=== PATIENT | female | born 1955 | race Caucasian/White ===

== ENCOUNTER → 2016-12-22 | Outpatient (CLI) | payer BC ==
[~2016-12-22] MED LIST: DIPH50CA33 PO; LISI10TA2 PO; MOME15CR TP; PRD5T PO
== END ==
DX: Z12.31 Encounter for screening mammogram for malignant neoplasm of breast (principal)

== ENCOUNTER → 2017-01-09 | Outpatient (REF) ==
[~2017-01-09] MED LIST changes: +CYAN10006 PO; +MULT-324 PO; +OMG1KC PO
--- NOTE | 2017-01-09 13:46 | Diagnostic Imaging Report ---
INDICATION: Left ankle injury. 3 views of the left ankle show no fracture, dislocation, or other acute abnormalities. IMPRESSION: Negative left ankle. Dictated by: Dictated on workstation # [id number]
--- NOTE | 2017-01-09 13:47 | Diagnostic Imaging Report ---
INDICATION: Left foot injury. 3 views of the left foot show no fracture, dislocation, or other acute abnormalities. IMPRESSION: Negative left foot. Dictated by: Dictated on workstation # [id number]
--- NOTE | 2017-01-09 13:54 | Diagnostic Imaging Report ---
Two views of the right wrist. INDICATION: Fall. FINDINGS: There is no fracture or dislocation seen. No radiopaque foreign body. There is joint space narrowing and subchondral sclerosis at the scaphoid trapezium and trapezium metacarpal joints at the base of the thumb. There is also minimal subchondral sclerosis at the radiocarpal joint. IMPRESSION: Mild degenerative changes. Dictated by: Dictated on workstation # [id number]
== END | disposition home or self-care (01) ==
LOC: OCC 13:15
PROVIDERS: ATTEND Nurse Practitioner Family
CPT/HCPCS: 73110; 73610; 73630

== ENCOUNTER 2017-02-17 03:02 | Inpatient (IN) | payer BC ==
[~2017-02-17] VITALS: Ht 165.1 cm; Wt 87.1 kg
[~2017-02-17 03:02] MED LIST changes: -CYAN10006 PO; -MULT-324 PO; -OMG1KC PO
--- OUTSIDE RECORDS SUMMARY | 2017-02-17 03:08 | XMS REPORT | Continuity of Care Document ---
Author Author [facility] Organization [facility] Address Unknown Phone Unavailable Allergies Active Description Code Type Severity Reaction Onset Reported/Identified Relationship to Patient Clinical Status Yes No Known Drug Allergies [id number] Drug Allergy Unknown N/ A 04/19/2016 Medications Problems Date Dx Coded Attending Type Code Diagnosis Diagnosed By 09/22/2010 Ot V16.0 FAMILY HX-GI MALIGNANCY 09/22/2010 Ot V76.51 SCREEN MAL NEOP-COLON 01/04/2012 Ot 692.6 DERMATITIS DUE TO PLANT 01/07/2012 Ot 692.6 DERMATITIS DUE TO PLANT 12/19/2014 Ot V76.12 01/06/2015 TETO MUSA DO Ot V76.12 12/22/2015 Ot V76.12 OTH SCREEN MAMMO-MALIGN NEOPLASM OF [place] 12/22/2015 TETO MUSA DO Ot V76.12 OTH SCREEN MAMMO-MALIGN NEOPLASM OF [place] 12/23/2015 TETO MUSA DO Ot Z12.31 ENCNTR SCREEN MAMMOGRAM FOR MALIGNANT NE 12/28/2015 TETO MUSA DO Ot Z12.31 ENCNTR SCREEN MAMMOGRAM FOR MALIGNANT NE 01/07/2016 TETO MUSA DO Ot Z12.31 ENCNTR SCREEN MAMMOGRAM FOR MALIGNANT NE 04/15/2016 BRANDON COLON DO Ot Z01.818 ENCOUNTER FOR OTHER PREPROCEDURAL EXAMIN 04/15/2016 BRANDON COLON DO Ot Z12.11 ENCOUNTER FOR SCREENING FOR MALIGNANT NE 04/18/2016 BRANDON COLON DO Ot Z01.818 ENCOUNTER FOR OTHER PREPROCEDURAL EXAMIN 04/18/2016 BRANDON COLON DO Ot Z12.11 ENCOUNTER FOR SCREENING FOR MALIGNANT NE 04/18/2016 BRANDON COLON DO Ot Z01.818 ENCOUNTER FOR OTHER PREPROCEDURAL EXAMIN 04/18/2016 BRANDON COLON DO Ot Z12.11 ENCOUNTER FOR SCREENING FOR MALIGNANT NE 04/19/2016 LENCHO SCOTT TETO Stevens Ot V76.12 OTH SCREEN MAMMO-MALIGN NEOPLASM OF [place] 04/19/2016 LENCHO TETO SCOTT Ot Z12.31 ENCNTR SCREEN MAMMOGRAM FOR MALIGNANT NE 04/19/2016 COLON JACEK SCOTTTT D Ot D12.4 BENIGN NEOPLASM OF DESCENDING COLON 04/19/2016 COLON JACEK SCOTTTT D Ot Z12.11 ENCOUNTER FOR SCREENING FOR MALIGNANT NE 04/19/2016 COLON JACEK SCOTTTT D Ot Z80.0 FAMILY HISTORY OF MALIGNANT NEOPLASM OF 04/21/2016 COLON BRANDON SCOTT D Ot D12.4 BENIGN NEOPLASM OF DESCENDING COLON 04/21/2016 COLON JACEK SCOTTTT D Ot Z12.11 ENCOUNTER FOR SCREENING FOR MALIGNANT NE 04/21/2016 HENDERSON JACEK SCOTTSAMEER Olmos Ot Z80.0 FAMILY HISTORY OF MALIGNANT NEOPLASM OF 01/04/2017 LENCHO SCOTTTETO Ot Z12.31 ENCNTR SCREEN MAMMOGRAM FOR MALIGNANT NE Procedures Results Encounters ACCT No. Visit Date/Time Discharge Status Pt. Type Provider Facility Loc./Unit Complaint [id number] 01/09/2017 13:15:00 2016 23:59:59 CLS Outpatient ANIBAL PIERRE [facility] OCC FELL [id number] 12/22/2016 14:15:00 2016 23:59:59 CLS Outpatient TETO MUSA DO [facility] RAD SCREENING [id number] 04/19/2016 06:58:00 2015 09:40:00 DIS Outpatient BRANDON COLON DO [facility] SDC SCREENING [id number] 04/18/2016 13:00:00 2015 13:27:00 DIS Outpatient BRANDON COLON DO [facility] PREOP SCREENING [id number] 12/22/2015 14:31:00 2015 23:59:59 CLS Outpatient TETO MUSA DO [facility] RAD SCREENING [id number] 12/19/2014 10:35:00 2014 23:59:[address] [facility] Outpatient TETO MUSA DO [facility] RAD SCREENING [id number] 01/07/2012 08:13:00 Document Registration [id number] 01/04/2012 10:23:00 Document Registration [id number] 09/22/2010 06:37:00 Document Registration [id number] 08/31/2010 08:51:00 Document Registration
[2017-02-17] MEDS ORDERED: ONDANSETRON 4 MG/2 ML (SDV) Z0FRAN IVP ONE (03:15)
--- NOTE | 2017-02-17 03:26 | ED Abdominal Pain ---
General Chief Complaint: Abdominal/GI Problems Stated Complaint: ABD PAIN Nursing Triage Note: c/o diffuse abdomen pain with nausea Sepsis Screen: No Definite Risk Source of Information: Patient Exam Limitations: No Limitations History of Present Illness Time Seen By Provider: 03:08 Initial Comments This 61-year-old woman presents to the emergency room with complaints of generalized abdominal pain across the central abdomen. Pain has been radiating to her back. She has associated nausea without vomiting or diarrhea. Her last bowel movement was this morning and was normal. She has been chilled without fever. She was unable to sleep and decided to present to the emergency room. Pain started last night. Her last oral intake was at 19:00. She denies any urinary changes. Allergies and Home Medications Allergies Coded Allergies: No Known Drug Allergies (Verified , 04/19/16) Home Medications Lisinopril 10 Mg Tablet, 10 MG PO DAILY, (Reported) Review of Systems Constitutional: see HPI, chills EENTM: No Symptoms Reported Respiratory: No Symptoms Reported Cardiovascular: No Symptoms Reported Gastrointestinal: See HPI Genitourinary: No Symptoms Reported Musculoskeletal: no symptoms reported Skin: no symptoms reported Psychiatric/Neurological: No Symptoms Reported Endocrine: No Symptoms Reported Hematologic/Lymphatic: No Symptoms Reported Past Hbxrkur-Zbeukv-Lzdope Hx Patient Social History Alcohol Use: Denies Use Recreational Drug Use: No Recent Foreign Travel: No Contact w/Someone Who Travel: No Recent Infectious Disease Expo: No Recent Hopitalizations: No Immunizations Up To Date Date of Influenza Vaccine: Apr 04, 2016 Seasonal Allergies Seasonal Allergies: No Surgeries HX Surgeries: Yes (BLADDER TIE UP) Surgeries: Abdominal (hernia repair), Hysterectomy Respiratory Hx Respiratory Disorders: No Cardiovascular Hx Cardiac Disorders: No Cardiac Disorders: Hypertension Neurological Hx Neurological Disorders: No Reproductive System Hx Reproductive Disorders: No Genitourinary Hx Genitourinary Disorders: No Gastrointestinal Hx Gastrointestinal Disorders: No Musculoskeletal Hx Musculoskeletal Disorders: Yes Musculoskeletal Disorders: Chronic Back Pain HEENT HX ENT Disorders: Yes (GLASSES, PARTIAL) Loss of Vision: Bilateral Hearing Impairment: Denies Cancer Hx Cancer: No Integumentary HX Skin/Integumentary Disorder: No Blood Transfusions Hx Blood Disorders: No Adverse Reaction to a Blood Tr: No (N/A) Physical Exam Vital Signs VS - Last 72 Hours, by Label 02/17/17 03:10 Temp 97.5 Pulse 85 Resp 18 B/P (MAP) 134/119 Pulse Ox 99 Capillary Refill : Less Than 3 Seconds General Appearance: WD/WN, mild distress HEENT: PERRL/EOMI, normal ENT inspection, pharynx normal Neck: normal inspection Respiratory: lungs clear, normal breath sounds, no respiratory distress, no accessory muscle use Cardiovascular: regular rate, rhythm, no edema, no murmur Gastrointestinal: normal bowel sounds, soft, tenderness (generalized central abdomen) Extremities: normal inspection, no pedal edema 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, no motor/sensory deficits, alert, normal mood/affect, oriented x 3 Skin: normal color, warm/dry Progress/Results/Core Measures Results/Orders Lab Results Laboratory Tests Test 02/17/17 03:15 02/17/17 03:25 Range/Units Urine Color YELLOW Urine Clarity SLIGHTLY CLOUDY Urine pH 5 5-9 Urine Specific [place] 1.015 L 1.016-1.022 Urine Protein 2+ H NEGATIVE Urine Glucose (UA) NEGATIVE NEGATIVE Urine Ketones 1+ H NEGATIVE Urine Nitrite NEGATIVE NEGATIVE Urine Bilirubin NEGATIVE NEGATIVE Urine Urobilinogen NORMAL NORMAL MG/DL Urine Leukocyte Esterase 3+ H NEGATIVE Urine RBC (Auto) 2+ H NEGATIVE Urine RBC 0-2 /HPF Urine WBC 25-50 H /HPF Urine Squamous Epithelial Cells 0-2 /HPF Urine Crystals NONE /LPF Urine Bacteria FEW H /HPF Urine Casts NONE /LPF Urine Mucus SMALL H /LPF Urine Culture Indicated YES White Blood Count 15.8 H 4.3-11.0 10^3/uL Red Blood Count 4.71 4.35-5.85 10^6/uL Hemoglobin 14.8 11.5-16.0 G/DL Hematocrit 44 35-52 % Mean Corpuscular Volume 94 80-99 FL Mean Corpuscular Hemoglobin 31 25-34 PG Mean Corpuscular Hemoglobin Concent 34 32-36 G/DL Red Cell Distribution Width 12.9 10.0-14.5 % Platelet Count 260 130-400 10^3/uL Mean Platelet Volume 11.0 H 7.4-10.4 FL Neutrophils (%) (Auto) 67 42-75 % Lymphocytes (%) (Auto) 24 12-44 % Monocytes (%) (Auto) 8 0-12 % Eosinophils (%) (Auto) 2 0-10 % Basophils (%) (Auto) 0 0-10 % Neutrophils # (Auto) 10.5 H 1.8-7.8 X 10^3 Lymphocytes # (Auto) 3.7 1.0-4.0 X 10^3 Monocytes # (Auto) 1.3 H 0.0-1.0 X 10^3 Eosinophils # (Auto) 0.3 0.0-0.3 10^3/uL Basophils # (Auto) 0.0 0.0-0.1 10^3/uL Neutrophils % (Manual) 65 % Lymphocytes % (Manual) 15 % Monocytes % (Manual) 3 % Eosinophils % (Manual) 2 % Basophils % (Manual) 1 % Band Neutrophils 0 % Reactive Lymphocytes 14 % Blood Morphology Comment NORMAL Sodium Level 141 135-145 MMOL/L Potassium Level 4.6 3.6-5.0 MMOL/L Chloride Level 108 H 98-107 MMOL/L Carbon Dioxide Level 18 L 21-32 MMOL/L Anion Gap 15 H 5-14 MMOL/L Blood Urea Nitrogen 20 H 7-18 MG/DL Creatinine 0.82 0.60-1.30 MG/DL Estimat Glomerular Filtration Rate > 60 BUN/Creatinine Ratio 24 Glucose Level 107 H 70-105 MG/DL Calcium Level 9.7 8.5-10.1 MG/DL Total Bilirubin 1.1 H 0.1-1.0 MG/DL Aspartate Amino Transf (AST/SGOT) 27 5-34 U/L Alanine Aminotransferase (ALT/SGPT) 20 0-55 U/L Alkaline Phosphatase 84 40-136 U/L Total Protein 7.6 6.4-8.2 GM/DL Albumin 4.3 3.2-4.5 GM/DL Lipase 17 8-78 U/L My Orders Orders - SAMI ADKINS MD Cbc With Automated Diff (02/17/17 03:06) Comprehensive Metabolic Panel (02/17/17 03:06) Lipase (02/17/17 03:06) Ua Culture If Indicated (02/17/17 03:06) Saline Lock/Iv-Start (02/17/17 03:06) Ondansetron Injection (Zofran Injectio (02/17/17 03:15) Manual Differential (02/17/17 03:25) Urine Culture (02/17/17 03:15) Ct Abdomen/Pelvis W (02/17/17 04:13) Iohexol Injection (Omnipaque 350 Mg/Ml 1 (02/17/17 05:00) Ns (Ivpb) (Sodium Chloride 0.9% Ivpb Bag (02/17/17 05:00) Fentanyl Injection (Sublimaze Injection (02/17/17 05:45) Ceftriaxone Injection (Rocephin Injectio (02/17/17 06:15) Medications Given in ED Current Medications Medications Dose Ordered Sig/Tang Route Start Time Stop Time Status Last Admin Dose Admin Ceftriaxone Sodium 1000 mg/ Sodium Chloride 50 ml @ 100 mls/hr ONCE ONCE IV 02/17/17 06:15 02/17/17 06:44 02/17/17 06:14 100 MLS/HR Fentanyl Citrate 50 mcg ONCE ONCE IVP 02/17/17 05:45 02/17/17 05:46 DC 02/17/17 05:45 50 MCG Iohexol 100 ml ONCE ONCE IV 02/17/17 05:00 02/17/17 05:01 DC 02/17/17 04:59 100 ML Ondansetron HCl 4 mg ONCE ONCE IVP 02/17/17 03:15 02/17/17 03:16 DC 02/17/17 03:28 4 MG Sodium Chloride 100 ml ONCE ONCE IV 02/17/17 05:00 02/17/17 05:01 DC 02/17/17 04:59 80 ML Vital Signs/I&O Vital Sign - Last 12Hours 02/17/17 03:10 Temp 97.5 Pulse 85 Resp 18 B/P (MAP) 134/119 Pulse Ox 99 Blood Pressure Mean: 124 Progress Note : Progress Note Patient's pain was treated with fentanyl. Nausea was treated with Zofran. Urinary tract infection was treated with Rocephin. Case was reviewed with Dr. Rodarte who suggested admission for observation. Diagnostic Imaging Diagonstic Imaging: CT Plain Films/CT/US/NM/MRI: abdomen, pelvis Comments CT scan reviewed by me and report reviewed. Patient has air-fluid filled proximal small bowel loops suggestive of partial small bowel obstruction. There is a transition point. There is wall thickening in segments of the small bowel suggestive of enteritis. Departure Communication Time/Spoke to Admitting Phy: 06:[address] Cortes Time/Spoke to Consulting Physi: 06:00 Communication/Consulting Dr. Rowland Impression Impression: Primary Impression: Partial small bowel obstruction Additional Impressions: Urinary tract infection Qualified Codes: N39.0 - Urinary tract infection, site not specified Nausea and vomiting Qualified Codes: R11.2 - Nausea with vomiting, unspecified Disposition: ADMITTED INPATIENT Condition: Improved Admissions Decision to Admit Reason: Admit from ER (General) Decision to Admit/Date: Feb 17, 2017 Time/Decision to Admit Time: 06:00 Departure-Patient Inst. Referrals: TETO CORTES DO (PCP/Family) Primary Care Physician SAMI ADKINS MD Feb 17, 2017 03:26
[2017-02-17 03:30] LABS: BILIRUBIN,URINE NEGATIVE (NEGATIVE); KETONES,URINE 1+ (NEGATIVE); LEUKOCYTE ESTERASE ,URINE 3+ (NEGATIVE); NITRITE,URINE NEGATIVE (NEGATIVE); PH,URINE 5 (5-9); PROTEIN,URINE 2+ (NEGATIVE); UROBILINOGEN,URINE NORMAL (NORMAL)
[2017-02-17 03:36] LABS: BASOPHILS % (AUTO) 0 % (0-10); EOSINOPHILS # (AUTO) 0.3 10^3/uL (0.0-0.3); EOSINOPHILS % (AUTO) 2 % (0-10); LYMPHOCYTES # (AUTO) 3.7 X 10^3 (1.0-4.0); LYMPHOCYTES % (AUTO) 24 % (12-44); MEAN CORPUSCULAR HEMOGLOBIN 31 PG (25-34); MEAN CORPUSCULAR HGB CONC 34 G/DL (32-36); MEAN CORPUSCULAR VOLUME 94 FL (80-99); MONOCYTES # (AUTO) 1.3 X 10^3 (0.0-1.0); MONOCYTES % (AUTO) 8 % (0-12); NEUTROPHILS # (AUTO) 10.5 X 10^3 (1.8-7.8); NEUTROPHILS % (AUTO) 67 % (42-75); PLATELET COUNT 260 10^3/uL (130-400); RED BLOOD COUNT 4.71 10^6/uL (4.35-5.85); RED CELL DISTRIBUTION WIDTH 12.9 % (10.0-14.5); WHITE BLOOD COUNT 15.8 10^3/uL (4.3-11.0)
[2017-02-17 03:48] LABS: SQUAMOUS EPITHELIAL CELL,UR 0-2 /HPF; WBC,URINE 25-50 /HPF
[2017-02-17 04:01] LABS: BAND NEUTROPHILS 0 %; BASOPHILS % (MANUAL) 1 %; EOSINOPHILS % (MANUAL) 2 %; LYMPHOCYTES % (MANUAL) 15 %; NEUTROPHILS % (MANUAL) 65 %; REACTIVE LYMPHOCYTES 14 %
[2017-02-17 04:10] LABS: ALANINE AMINOTRANSFERASE 20 U/L (0-55); ALBUMIN 4.3 GM/DL (3.2-4.5); ANION GAP 15 MMOL/L (5-14); ASPARTATE AMINO TRANSFERASE 27 U/L (5-34); BILIRUBIN,TOTAL 1.1 MG/DL (0.1-1.0); BLOOD UREA NITROGEN 20 MG/DL (7-18); BUN/CREATININE RATIO 24; CALCIUM 9.7 MG/DL (8.5-10.1); CARBON DIOXIDE 18 MMOL/L (21-32); CHLORIDE 108 MMOL/L (98-107); CREATININE SERUM 0.82 MG/DL (0.60-1.30); GFR ESTIMATED > 60; GLUCOSE 107 MG/DL (70-105); LIPASE 17 U/L (8-78); POTASSIUM 4.6 MMOL/L (3.6-5.0); SODIUM 141 MMOL/L (135-145); TOTAL PROTEIN 7.6 GM/DL (6.4-8.2)
[2017-02-17] MEDS ORDERED: NS 100 ML (IVPB) BAG IV ONE (05:00)
[2017-02-17] MEDS ORDERED: IOHEXOL 350 MG/ML 100 ML (OMNIPAQUE 350) VIAL IV ONE (05:00)
[2017-02-17] MEDS ORDERED: fentaNYL INJECTION 100 MCG/2 ML AMP IVP ONE (05:45)
[2017-02-17] MEDS ORDERED: cefTRIAXone INJECTION 1,000 MG in NS (IVPB) 50 ML IV ONE (06:15)
--- NOTE | 2017-02-17 06:45 | Diagnostic Imaging Report ---
PROCEDURE: CT abdomen and pelvis with contrast. TECHNIQUE: Multiple contiguous axial images were obtained through the abdomen and pelvis after administration of intravenous contrast. INDICATION: Abdominal pain and nausea x1 day. CORRELATION STUDY: None. FINDINGS: LOWER THORAX: Clear. LIVER: Mild diffuse hepatic steatosis without focal lesion. GALLBLADDER: Present and unremarkable. No bile duct dilatation. SPLEEN: Unremarkable. PANCREAS: Unremarkable. ADRENAL GLANDS: Unremarkable. KIDNEYS: Normal configuration. No calcification or obstruction. ABDOMINAL AORTA: Unremarkable, nonaneurysmal. GASTROINTESTINAL TRACT: Moderately dilated air and fluid-filled proximal small bowel loops are present. These measure up to approximately 3.3 cm. There is what appears to be a probable transition point in the right hemipelvis where the small bowel does appear to be somewhat thick walled. Colon appearing unremarkable. No evidence for appendicitis. There is presence of a small amount of abdominal and pelvic fluid. No findings to suggest abscess formation. Stomach mildly distended with fluid as well. There are a few shotty mesenteric and retroperitoneal lymph nodes present, likely reactive. URINARY BLADDER: Relatively decompressed. REPRODUCTIVE: Uterus is absent. OSSEOUS STRUCTURES: No acute abnormality. IMPRESSION: 1. Prominent dilated air-fluid filled loops of small bowel with apparent transition point. Features may very well reflect underlying distal enteritis, either infectious, inflammatory less likely ischemic with likely results in partial small bowel obstruction versus profound ileus. Followup imaging recommended. Likely reactive abdominal and pelvic fluid. A preliminary report was provided by [employer]. Dictated by: Dictated on workstation # [id number]
[2017-02-17 07:22] VITALS: BP 120/74
[2017-02-17] MEDS ORDERED: CATHETER FLUSH 10 ML SYR IV PRN (07:45)
[2017-02-17] MEDS: D5 1/2 NS 1000 ML IV SOLUTION 1,000 ML IV SCH ×3 (07:51→23:54)
[2017-02-17] MEDS: fentaNYL INJECTION 100 MCG/2 ML AMP IV PRN ×3 (07:52→19:50)
[2017-02-17] MEDS ORDERED: MULT-324 PO (08:02)
[2017-02-17] MEDS ORDERED: OMG1KC PO (08:02)
[2017-02-17] MEDS ORDERED: CYAN10006 PO (08:02)
[2017-02-17] MEDS: cefTRIAXone 1 GM/NS 50 ML IVPB IV SCH ×2 (08:22)
[2017-02-17] MEDS: FAMOTIDINE 20MG/2ML IV (PEPCID) IVP SCH ×2 (09:50→20:03)
--- NOTE | 2017-02-17 11:11 | Consultation ---
History of Present Illness History of Present Illness Patient Consulted On(lesa/time) 02/17/17 11:05 Time Seen by Provider: 10:16 History of Present Illness Surgery asked to consult regarding partial small bowel obstruction HPI: Pt is a 61-year-old woman who presented to the emergency room with complaints of generalized abdominal pain across the central abdomen. Pain has been radiating to her back. She states it is associated with nausea but no vomiting or diarrhea. Her last bowel movement was this morning and was normal. She has been chilled without fever. She was unable to sleep and decided to present to the emergency room. Pain started last night. Her last oral intake was at 19:00. She denies any dysuria, increased frequency or hematuria. She rated the pain as a 6 out of 10 on a 1-10 scale. Describes a mainly "crampy" pain. She denies any recent URI's, no travel and states no one at home has anything similar. She has never had anything like this before. Allergies and Home Medications Allergies Coded Allergies: No Known Drug Allergies (Verified , 04/19/16) Home Medications Cyanocobalamin (Vitamin B-12) 1,000 Mcg Tablet, 1,000 MCG PO DAILY, (Reported) Lisinopril 10 Mg Tablet, 5 MG PO DAILY, (Reported) TAKES 1/2 (10MG) TABLET Multivitamin 1 Each Tablet, 1 TAB PO DAILY, (Reported) [place] 3 Polyunsat Fatty Acids 1,000 Mg Cap, 1,000 MG PO 1800, (Reported) Past Imhnucy-Ciytaw-Kgsikg Hx Patient Social History Alcohol Use: Denies Use Recreational Drug Use: No Smoking Status: Never a Smoker Recent Foreign Travel: No Contact w/Someone Who Travel: No Recent Infectious Disease Expo: No Recent Hopitalizations: No Immunizations Up To Date Date of Influenza Vaccine: Apr 04, 2016 Seasonal Allergies Seasonal Allergies: No Surgeries HX Surgeries: Yes (BLADDER TIE UP) Surgeries: Abdominal (hernia repair), Hysterectomy Respiratory Hx Respiratory Disorders: No Cardiovascular Hx Cardiac Disorders: No Cardiac Disorders: Hypertension Neurological Hx Neurological Disorders: No Reproductive System Hx Reproductive Disorders: No Genitourinary Hx Genitourinary Disorders: No Gastrointestinal Hx Gastrointestinal Disorders: No Musculoskeletal Hx Musculoskeletal Disorders: Yes Musculoskeletal Disorders: Chronic Back Pain HEENT HX ENT Disorders: Yes (GLASSES, PARTIAL) Loss of Vision: Bilateral Hearing Impairment: Denies Cancer Hx Cancer: No Psychosocial Hx Psychiatric Problems: No Integumentary HX Skin/Integumentary Disorder: No Blood Transfusions Hx Blood Disorders: No Adverse Reaction to a Blood Tr: No (N/A) Family Medical History Significant Family History: Cancer (mother of cancer), CAD Over 55 Years Old (father), Hypertension (2 brothers) Review of Systems-General Constitutional: chills, diaphoresis, weakness EENTM: vision loss, No hearing loss, No epistaxis, No nose congestion, No throat pain, No throat swelling Respiratory: No cough, No dyspnea on exertion, No hemoptysis Cardiovascular: No chest pain, No edema, No palpitations Gastrointestinal: RLQ, No constipation, No diarrhea, No melena Genitourinary: No dysuria, No frequency, No hesitancy Musculoskeletal: back pain, joint pain, joint swelling, muscle stiffness Skin: No change in color, No change in hair/nails Psychiatric/Neurological: Denies Anxiety, Denies Depressed Other pt denies any abnormal bruising or bleeding, no heat or cold intolerance Physical Exam-General Problems Physical Exam Vital Signs Vital Sign - Last 12Hours 02/17/17 02/17/17 03:10 07:22 Temp 97.5 Pulse 85 Resp 18 B/P (MAP) 134/119 Pulse Ox 99 O2 Delivery Room Air Capillary Refill : Less Than 3 Seconds General Appearance: WD/WN, mild distress Eyes: Bilateral Eye PERRL, Bilateral Eye EOMI HEENT: pharynx normal, No scleral icterus (R), No scleral icterus (L) Neck: non-tender, full range of motion, supple Respiratory: chest non-tender, lungs clear, normal breath sounds, no respiratory distress, no accessory muscle use Cardiovascular: regular rate, rhythm, no murmur Gastrointestinal: normal bowel sounds, soft, no organomegaly, No distended, tenderness (mostly RLQ and some RUQ) Rectal: deferred Back: no CVA tenderness, no vertebral tenderness Extremities: no pedal edema, no calf tenderness, normal capillary refill 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, no motor/sensory deficits, alert, normal mood/affect, oriented x 3 Skin: normal color, warm/dry Lymphatic: no adenopathy (neck, axilla or groin) Data Review Labs Laboratory Tests 02/17/17 03:15: Urine Color YELLOW, Urine Clarity SLIGHTLY CLOUDY, Urine pH 5, Urine Specific [place] 1.015L, Urine Protein 2+H, Urine Glucose (UA) NEGATIVE, Urine Ketones 1+ H, Urine Nitrite NEGATIVE, Urine Bilirubin NEGATIVE, Urine Urobilinogen NORMAL, Urine Leukocyte Esterase 3+H, Urine RBC (Auto) 2+H, Urine RBC 0-2, Urine WBC 25- 50H, Urine Squamous Epithelial Cells 0-2, Urine Crystals NONE, Urine Bacteria FEWH, Urine Casts NONE, Urine Mucus SMALLH, Urine Culture Indicated YES 02/17/17 03:25: White Blood Count 15.8H, Red Blood Count 4.71, Hemoglobin 14.8, Hematocrit 44, Mean Corpuscular Volume 94, Mean Corpuscular Hemoglobin 31, Mean Corpuscular Hemoglobin Concent 34, Red Cell Distribution Width 12.9, Platelet Count 260, Mean Platelet Volume 11.0H, Neutrophils (%) (Auto) 67, Lymphocytes (%) (Auto) 24 , Monocytes (%) (Auto) 8, Eosinophils (%) (Auto) 2, Basophils (%) (Auto) 0, Neutrophils # (Auto) 10.5H, Lymphocytes # (Auto) 3.7, Monocytes # (Auto) 1.3H, Eosinophils # (Auto) 0.3, Basophils # (Auto) 0.0, Neutrophils % (Manual) 65, Lymphocytes % (Manual) 15, Monocytes % (Manual) 3, Eosinophils % (Manual) 2, Basophils % (Manual) 1, Band Neutrophils 0, Reactive Lymphocytes 14, Blood Morphology Comment NORMAL, Sodium Level 141, Potassium Level 4.6, Chloride Level 108H, Carbon Dioxide Level 18L, Anion Gap 15H, Blood Urea Nitrogen 20H, Creatinine 0.82, Estimat Glomerular Filtration Rate > 60, BUN/Creatinine Ratio 24, Glucose Level 107H, Calcium Level 9.7, Total Bilirubin 1.1H, Aspartate Amino Transf (AST/SGOT) 27, Alanine Aminotransferase (ALT/SGPT) 20, Alkaline Phosphatase 84, Total Protein 7.6, Albumin 4.3, Lipase 17 Assessment/Plan Assessment/Plan Assessment/Plan Partial Small Bowel Obstruction UTI - treat with ABX HTN - continue home meds Pt needs IV fluids, pain control, anti-emetics as needed. May need a small bowel follow thru if she does not show improvement. Would recheck labs and keep NPO. WAGNER CHILDRESS DO Feb 17, 2017 11:11
--- NOTE | 2017-02-17 11:59 | History & Physicial ---
History of Present Illness History of Present Illness Reason for visit/HPI This is a 61 year old female who presented to the emergency room with worsening abdominal pain. She stated that she has had crampy abdominal pain the past few days with associated nausea and loose stools. The abdominal pain worsened and she was concerned about possible acute appendicitis so she presented to the emergency room for evaluation. She was found to have a partial small bowel obstruction vs and ileus on CT scan, as well as a urinary tract infection. It was decided to admit her for treatment and surgical consult. Date of Admission Feb 17, 2017 at 06:16 Date Seen by Provider: Feb 17, 2017 Time Seen by Provider: 11:52 I consulted on this patient on 02/17/17 11:52 Attending Physician Ngozi Cortes DO Admitting Physician Ngozi Cortes DO Consult Allergies and Home Medications Allergies Coded Allergies: No Known Drug Allergies (Verified , 04/19/16) Home Medications Cyanocobalamin (Vitamin B-12) 1,000 Mcg Tablet, 1,000 MCG PO DAILY, (Reported) Lisinopril 10 Mg Tablet, 5 MG PO DAILY, (Reported) TAKES 1/2 (10MG) TABLET Multivitamin 1 Each Tablet, 1 TAB PO DAILY, (Reported) [place] 3 Polyunsat Fatty Acids 1,000 Mg Cap, 1,000 MG PO 1800, (Reported) Past Qztdpzy-Utbnds-Eccgpv Hx Patient Social History Alcohol Use: Denies Use Recreational Drug Use: No Smoking Status: Never a Smoker Recent Foreign Travel: No Contact w/other who traveled: No Recent Hopitalizations: No Recent Infectious Disease Expo: No Immunizations Up To Date Date of Influenza Vaccine: Apr 04, 2016 Seasonal Allergies Seasonal Allergies: No Surgeries HX Surgeries: Yes (BLADDER TIE UP) Surgeries: Abdominal (hernia repair), Hysterectomy Respiratory Hx Respiratory Disorders: No Cardiovascular Hx Cardiovascular Disorders: No Cardiac Disorders: Hypertension Neurological Hx Neurological Disorders: No Reproductive System Hx Reproductive Disorders: No Genitourinary Hx Genitourinary Disorders: No Gastrointestinal Hx Gastrointestinal Disorders: No Musculoskeletal Hx Musculoskeletal Disorders: Yes Musculoskeletal Disorders: Chronic Back Pain HEENT HX ENT Disorders: Yes (GLASSES, PARTIAL) Loss of Vision: Bilateral Hearing Impairment: Denies Cancer Hx Cancer: No Psychosocial Hx Psychiatric Problems: No Integumentary HX Skin/Integumentary Disorder: No Blood Transfusions Hx Blood Disorders: No Adverse Reaction to a Blood Tr: No (N/A) Family Medical History Significant Family History: Cancer (mother of cancer), CAD Over 55 Years Old (father), Hypertension (2 brothers) Constitutional: malaise EENTM: No see HPI, No no symptoms reported, No ear discharge, No hearing loss, No ear pain, No blurred vision, No double vision, No eye pain, No tearing, No vision loss, No dental problems, No hoarseness, No mouth pain, No mouth swelling , No epistaxis, No nose congestion, No nose pain, No throat pain, No throat swelling, No other Respiratory: No no symptoms reported, No see HPI, No cough, No dyspnea on exertion, No hemoptysis, No orthopnea, No phlegm, No short of breath, No stridor , No wheezing, No other Cardiovascular: No no symptoms reported, No see HPI, No chest pain, No edema, No Hx of Intervention, No palpitations, No syncope, No vascular heart diseas, No other Gastrointestinal: abdominal pain, diarrhea (loose stools), loss of appetite, nausea Genitourinary: No no symptoms reported, No see HPI, No decreased output, No discharge, No dysuria, No frequency, No hematuria, No hesitancy, No incontinence , No nocturia, No pain, No other Musculoskeletal: No no symptoms reported, No see HPI, No back pain, No gout, No joint pain, No joint swelling, No muscle pain, No muscle stiffness, No muscle cramps, No muscle twitching, No muscle weakness, No neck pain, No other Skin: No no symptoms reported, No see HPI, No change in color, No change in hair/nails, No dryness, No hx of skin cancer, No lesions, No lumps, No pruritus , No rash, No other Psychiatric/Neurological: Weakness Physical Exam Vital Signs Vital Sign - Last 12Hours 02/17/17 02/17/17 03:10 07:22 Temp 97.5 Pulse 85 Resp 18 B/P (MAP) 134/119 Pulse Ox 99 O2 Delivery Room Air Capillary Refill : Less Than 3 Seconds General Appearance: Mild Distress HEENT: Normal ENT Inspection Neck: Supple Respiratory: Lungs Clear Cardiovascular: Regular Rate, Rhythm Gastrointestinal: Soft, Abnormal Bowel Sounds (hypoactive), Distended (mild), Tenderness (epigastric, RUQ, RLQ) Rectal: Deferred Back: No CVA Tenderness Extremity: Non Tender, No Calf Tenderness, No Pedal Edema Neurologic/Psychiatric: Alert, Oriented x3 Skin: Normal Color, Warm/Dry Lymphatic: No Adenopathy Comments Laboratory Tests 02/17/17 03:15: Urine Color YELLOW, Urine Clarity SLIGHTLY CLOUDY, Urine pH 5, Urine Specific [place] 1.015L, Urine Protein 2+H, Urine Glucose (UA) NEGATIVE, Urine Ketones 1+ H, Urine Nitrite NEGATIVE, Urine Bilirubin NEGATIVE, Urine Urobilinogen NORMAL, Urine Leukocyte Esterase 3+H, Urine RBC (Auto) 2+H, Urine RBC 0-2, Urine WBC 25- 50H, Urine Squamous Epithelial Cells 0-2, Urine Crystals NONE, Urine Bacteria FEWH, Urine Casts NONE, Urine Mucus SMALLH, Urine Culture Indicated YES 02/17/17 03:25: White Blood Count 15.8H, Red Blood Count 4.71, Hemoglobin 14.8, Hematocrit 44, Mean Corpuscular Volume 94, Mean Corpuscular Hemoglobin 31, Mean Corpuscular Hemoglobin Concent 34, Red Cell Distribution Width 12.9, Platelet Count 260, Mean Platelet Volume 11.0H, Neutrophils (%) (Auto) 67, Lymphocytes (%) (Auto) 24 , Monocytes (%) (Auto) 8, Eosinophils (%) (Auto) 2, Basophils (%) (Auto) 0, Neutrophils # (Auto) 10.5H, Lymphocytes # (Auto) 3.7, Monocytes # (Auto) 1.3H, Eosinophils # (Auto) 0.3, Basophils # (Auto) 0.0, Neutrophils % (Manual) 65, Lymphocytes % (Manual) 15, Monocytes % (Manual) 3, Eosinophils % (Manual) 2, Basophils % (Manual) 1, Band Neutrophils 0, Reactive Lymphocytes 14, Blood Morphology Comment NORMAL, Sodium Level 141, Potassium Level 4.6, Chloride Level 108H, Carbon Dioxide Level 18L, Anion Gap 15H, Blood Urea Nitrogen 20H, Creatinine 0.82, Estimat Glomerular Filtration Rate > 60, BUN/Creatinine Ratio 24, Glucose Level 107H, Calcium Level 9.7, Total Bilirubin 1.1H, Aspartate Amino Transf (AST/SGOT) 27, Alanine Aminotransferase (ALT/SGPT) 20, Alkaline Phosphatase 84, Total Protein 7.6, Albumin 4.3, Lipase 17 Assessment/Plan Assessment and Plan 1. Partial Small Bowel Obstruction due to acute enteritis and likely adhesions- -supportive care with NPO, IVF, IV antiemetics, pain control, consult surgery and possible SBFT 2. Acute UTI--cover with Rocephin 3. Hypertension--hold lisinopril as is low dose and monitor BP Problems: Clinical Quality Measures DVT/VTE Risk/Contraindication: Risk Factor Score Per Nursin RFS Level Per Nursing on Admit: 3=High NGOZI CORTES DO Feb 17, 2017 11:58
[2017-02-17 12:00] VITALS: BP 115/67
[2017-02-17] MEDS: ONDANSETRON 4 MG/2 ML (SDV) Z0FRAN IV PRN ×2 (14:44→20:03)
[2017-02-17 16:00] VITALS: BP 111/57
[2017-02-17 19:49] VITALS: BP 123/69
[2017-02-18] VITALS: BP 105/53
[2017-02-18 04:00] VITALS: BP 103/57
[2017-02-18] MEDS: cefTRIAXone 1 GM/NS 50 ML IVPB IV SCH ×2 (06:02)
[2017-02-18 08:10] VITALS: BP 119/67
[2017-02-18] MEDS: D5 1/2 NS 1000 ML IV SOLUTION 1,000 ML IV SCH ×3 (08:20→23:39)
[2017-02-18] MEDS: FAMOTIDINE 20MG/2ML IV (PEPCID) IVP SCH ×2 (08:20→20:02)
--- NOTE | 2017-02-18 10:49 | Progress Note (SOAP) ---
Subjective Subjective Date Seen by Provider: Feb 18, 2017 Time Seen by Provider: 10:00 61 yo F admitted for partial small bowel obstruction- pt is feeling better - she is hungry- denies any flatulence. No bowel movements either. Pain is improved. Review of Systems General: No Chills, No Night Sweats HEENT: No Head Aches Pulmonary: No Dyspnea, No Cough Cardiovascular: No: Chest Pain, Palpitations, Orthopnea Gastrointestinal: Abdominal Pain, No: Nausea, Vomiting Genitourinary: No Dysuria, No Frequency Musculoskeletal: No: neck pain, shoulder pain Neurological: No: Numbness Objective Exam Vital Signs Vital Signs Date Time Temp Pulse Resp B/P (MAP) Pulse Ox O2 Delivery O2 Flow Rate FiO2 02/18/17 08:10 97.1 72 20 119/67 95 Room Air 02/18/17 04:00 98.3 69 18 103/57 95 Room Air 02/18/17 00:00 98.2 71 18 105/53 93 Room Air 02/17/17 19:49 99.2 74 21 123/69 96 Room Air 02/17/17 16:00 96.8 75 20 111/57 96 Room Air 02/17/17 15:10 96.8 02/17/17 14:33 98.9 02/17/17 12:00 98.9 72 18 115/67 98 Room Air I & O 02/19/17 07:00 Intake Total 1000 ml Balance 1000 ml General Appearance: No Apparent Distress, WD/WN, Mild Distress Eyes: Bilateral Eye PERRL, Bilateral Eye EOMI HEENT: Normal ENT Inspection Neck: Supple Respiratory: Lungs Clear Cardiovascular: Regular Rate, Rhythm Gastrointestinal: Soft, Abnormal Bowel Sounds (hypoactive), Distended (mild), Tenderness ( RLQ) Rectal: Deferred Back: No CVA Tenderness Extremity: Non Tender, No Calf Tenderness, No Pedal Edema Neurologic/Psychiatric: Alert, Oriented x3 Skin: Normal Color, Warm/Dry Lymphatic: No Adenopathy Results Lab Microbiology 02/17/17 Urine Culture - Preliminary, Resulted Probable E.coli Strep Or Related Genus Assessment/Plan Assessment/Plan Assessment/Plan 61 yo F partial small bowel obstruction due to enteritis, adhesions- IVF, pain control - Dr. Rowland consulted- may need a SBFT urinary traction infection without hematuria- rocephin, urine culture prelim Ecoli, danay strep- continue IVF will transition to PO when culture is final. hypertension- blood pressure stable- lisinopril held. Dispo: surgery consulted- likely d/c to home tomorrow. Problems: Clinical Quality Measures DVT/VTE Risk/Contraindication: Risk Factor Score Per Nursin RFS Level Per Nursing on Admit: 3=High MANNY BRASHER MD Feb 18, 2017 10:49
[2017-02-18 11:00] LABS: BASOPHILS % (AUTO) 0 % (0-10); EOSINOPHILS # (AUTO) 0.4 10^3/uL (0.0-0.3); EOSINOPHILS % (AUTO) 4 % (0-10); LYMPHOCYTES # (AUTO) 2.2 X 10^3 (1.0-4.0); LYMPHOCYTES % (AUTO) 21 % (12-44); MEAN CORPUSCULAR HEMOGLOBIN 32 PG (25-34); MEAN CORPUSCULAR HGB CONC 33 G/DL (32-36); MEAN CORPUSCULAR VOLUME 97 FL (80-99); MEAN PLATELET VOLUME 10.9 FL (7.4-10.4); MONOCYTES # (AUTO) 0.9 X 10^3 (0.0-1.0); MONOCYTES % (AUTO) 9 % (0-12); NEUTROPHILS # (AUTO) 6.9 X 10^3 (1.8-7.8); NEUTROPHILS % (AUTO) 67 % (42-75); PLATELET COUNT 211 10^3/uL (130-400); RED BLOOD COUNT 4.43 10^6/uL (4.35-5.85); RED CELL DISTRIBUTION WIDTH 12.9 % (10.0-14.5); WHITE BLOOD COUNT 10.3 10^3/uL (4.3-11.0)
[2017-02-18] MEDS ORDERED: morphine INJ 4 MG/ML 1 ML (VIAL/SYRINGE) ONE (11:11)
[2017-02-18 11:17] LABS: ALANINE AMINOTRANSFERASE 12 U/L (0-55); ALBUMIN 3.8 GM/DL (3.2-4.5); ANION GAP 10 MMOL/L (5-14); ASPARTATE AMINO TRANSFERASE 16 U/L (5-34); BILIRUBIN,TOTAL 0.9 MG/DL (0.1-1.0); BLOOD UREA NITROGEN 8 MG/DL (7-18); BUN/CREATININE RATIO 10; CALCIUM 8.9 MG/DL (8.5-10.1); CARBON DIOXIDE 22 MMOL/L (21-32); CHLORIDE 108 MMOL/L (98-107); CREATININE SERUM 0.78 MG/DL (0.60-1.30); GFR ESTIMATED > 60; GLUCOSE 107 MG/DL (70-105); POTASSIUM 3.8 MMOL/L (3.6-5.0); SODIUM 140 MMOL/L (135-145); TOTAL PROTEIN 6.7 GM/DL (6.4-8.2)
[2017-02-18] MEDS: morphine INJ 4 MG/ML 1 ML (VIAL/SYRINGE) IVP PRN ×2 (11:19→20:02)
[2017-02-18] MEDS: ONDANSETRON 4 MG/2 ML (SDV) Z0FRAN IV PRN ×3 (11:19→19:23)
[2017-02-18 12:00] VITALS: BP 126/69
--- NOTE | 2017-02-18 12:28 | Progress Note ---
Subjective Date Seen by Provider: Feb 18, 2017 Time Seen by Provider: 12:24 Subjective/Events-last exam wanting food but still having pain. maybe slightly better than yesterday. No flatus or bm. Wbc improved. having slight nausea no emesis at times. Objective Exam Vital Signs Date Time Temp Pulse Resp B/P (MAP) Pulse Ox O2 Delivery O2 Flow Rate FiO2 02/18/17 08:10 97.1 72 20 119/67 95 Room Air 02/18/17 04:00 98.3 69 18 103/57 95 Room Air 02/18/17 00:00 98.2 71 18 105/53 93 Room Air 02/17/17 19:49 99.2 74 21 123/69 96 Room Air 02/17/17 16:00 96.8 75 20 111/57 96 Room Air 02/17/17 15:10 96.8 02/17/17 14:33 98.9 I & O 02/19/17 07:00 Intake Total 1000 ml Balance 1000 ml Capillary Refill : Less Than 3 Seconds General Appearance: No Apparent Distress, WD/WN HEENT: Normal ENT Inspection Neck: Supple Respiratory: Lungs Clear Cardiovascular: Regular Rate, Rhythm Gastrointestinal: soft, no organomegaly, No distended, tenderness (lower abdomen slight tenderness) Extremity: Non Tender, No Calf Tenderness, No Pedal Edema Neurologic/Psychiatric: Alert, Oriented x3 Skin: Normal Color, Warm/Dry Lymphatic: No Adenopathy Results Lab Laboratory Tests 02/18/17 10:50: White Blood Count 10.3, Red Blood Count 4.43, Hemoglobin 14.0, Hematocrit 43, Mean Corpuscular Volume 97, Mean Corpuscular Hemoglobin 32, Mean Corpuscular Hemoglobin Concent 33, Red Cell Distribution Width 12.9, Platelet Count 211, Mean Platelet Volume 10.9H, Neutrophils (%) (Auto) 67, Lymphocytes (%) (Auto) 21 , Monocytes (%) (Auto) 9, Eosinophils (%) (Auto) 4, Basophils (%) (Auto) 0, Neutrophils # (Auto) 6.9, Lymphocytes # (Auto) 2.2, Monocytes # (Auto) 0.9, Eosinophils # (Auto) 0.4H, Basophils # (Auto) 0.0, Sodium Level 140, Potassium Level 3.8, Chloride Level 108H, Carbon Dioxide Level 22, Anion Gap 10, Blood Urea Nitrogen 8, Creatinine 0.78, Estimat Glomerular Filtration Rate > 60, BUN/ Creatinine Ratio 10, Glucose Level 107H, Calcium Level 8.9, Magnesium Level 2.0 , Total Bilirubin 0.9, Aspartate Amino Transf (AST/SGOT) 16, Alanine Aminotransferase (ALT/SGPT) 12, Alkaline Phosphatase 70, Total Protein 6.7, Albumin 3.8 Microbiology 02/17/17 Urine Culture - Preliminary, Resulted Probable E.coli Strep Or Related Genus Assessment/Plan Assessment/Plan Assessment/Plan 61 yo F partial small bowel obstruction urinary traction infection without hematuria- on abx hypertension- blood pressure stable- lisinopril held. still with some abdominal pain no flatus or bm will plan small bowel follow through for further evaluation Clinical Quality Measures DVT/VTE Risk/Contraindication: Risk Factor Score Per Nursin RFS Level Per Nursing on Admit: 3=High BRANDON COLON DO Feb 18, 2017 12:27 pm
[2017-02-18 16:00] VITALS: BP 131/70
[2017-02-18 20:17] VITALS: BP 140/87
[2017-02-19] VITALS: BP 116/74
[2017-02-19 04:00] VITALS: BP 131/83
[2017-02-19] MEDS: cefTRIAXone 1 GM/NS 50 ML IVPB IV SCH ×2 (05:07)
[2017-02-19 08:11] VITALS: BP 125/77
[2017-02-19] MEDS: FAMOTIDINE 20MG/2ML IV (PEPCID) IVP SCH ×2 (08:17→20:07)
[2017-02-19] MEDS: D5 1/2 NS 1000 ML IV SOLUTION 1,000 ML IV SCH ×3 (08:17→23:46)
--- NOTE | 2017-02-19 09:50 | Diagnostic Imaging Report ---
INDICATION: Abdominal distention. FINDINGS: There is moderate amount of retained contrast material within the colon. Bowel gas pattern is nonspecific. Nasogastric tube is in place. There are no abnormal abdominal calcifications. IMPRESSION: Nonspecific bowel gas pattern Dictated by: Dictated on workstation # [id number]
--- NOTE | 2017-02-19 10:37 | Progress Note ---
Subjective Date Seen by Provider: Feb 19, 2017 Time Seen by Provider: 10:32 Subjective/Events-last exam feeling a little better this morning. had nausea and emesis last night and ng tube placed. no flatus or bm yet. Patient KUB demonstrating contrast in colon. no fever sweats chills shortness of breath or chest pain. Objective Exam Vital Signs Date Time Temp Pulse Resp B/P (MAP) Pulse Ox O2 Delivery O2 Flow Rate FiO2 02/19/17 08:11 97.3 79 20 125/77 96 Room Air 02/19/17 04:00 97.9 76 18 131/83 96 Room Air 02/19/17 00:00 97.2 80 20 116/74 95 Room Air 02/18/17 20:17 99.3 80 20 140/87 96 Room Air 02/18/17 16:00 98.1 71 22 131/70 97 Room Air 02/18/17 12:00 97.3 67 18 126/69 95 Room Air Capillary Refill : Less Than 3 Seconds General Appearance: No Apparent Distress, WD/WN HEENT: Normal ENT Inspection (NG tube in place) Neck: Supple Respiratory: Lungs Clear Cardiovascular: Regular Rate, Rhythm Gastrointestinal: soft, no organomegaly, tenderness (lower abdomen less tender this morning) Extremity: Non Tender, No Calf Tenderness, No Pedal Edema Neurologic/Psychiatric: Alert, Oriented x3 Skin: Normal Color, Warm/Dry Lymphatic: No Adenopathy Results Lab Laboratory Tests 02/18/17 10:50: White Blood Count 10.3, Red Blood Count 4.43, Hemoglobin 14.0, Hematocrit 43, Mean Corpuscular Volume 97, Mean Corpuscular Hemoglobin 32, Mean Corpuscular Hemoglobin Concent 33, Red Cell Distribution Width 12.9, Platelet Count 211, Mean Platelet Volume 10.9H, Neutrophils (%) (Auto) 67, Lymphocytes (%) (Auto) 21 , Monocytes (%) (Auto) 9, Eosinophils (%) (Auto) 4, Basophils (%) (Auto) 0, Neutrophils # (Auto) 6.9, Lymphocytes # (Auto) 2.2, Monocytes # (Auto) 0.9, Eosinophils # (Auto) 0.4H, Basophils # (Auto) 0.0, Sodium Level 140, Potassium Level 3.8, Chloride Level 108H, Carbon Dioxide Level 22, Anion Gap 10, Blood Urea Nitrogen 8, Creatinine 0.78, Estimat Glomerular Filtration Rate > 60, BUN/ Creatinine Ratio 10, Glucose Level 107H, Calcium Level 8.9, Magnesium Level 2.0 , Total Bilirubin 0.9, Aspartate Amino Transf (AST/SGOT) 16, Alanine Aminotransferase (ALT/SGPT) 12, Alkaline Phosphatase 70, Total Protein 6.7, Albumin 3.8 Microbiology 02/17/17 Urine Culture - Final, Complete Escherichia Coli Streptococcus Viridans Assessment/Plan Assessment/Plan Assessment/Plan 61 yo F partial small bowel obstruction urinary traction infection without hematuria- on abx hypertension- blood pressure stable- lisinopril held. sbft performed and kub this am demonstrating contrast in colon with nausea and emesis last night ng tube placed. will keep in until passing flatus repeat labs in am. Clinical Quality Measures DVT/VTE Risk/Contraindication: Risk Factor Score Per Nursin RFS Level Per Nursing on Admit: 3=High BRANDON COLON DO Feb 19, 2017 10:37
--- NOTE | 2017-02-19 10:41 | Diagnostic Imaging Report ---
INDICATION: Questionable small bowel obstruction seen on CT. FINDINGS: The preliminary radiograph demonstrates some mildly dilated loops of small bowel. 5 hour imaging demonstrates multiple dilated loops of proximal small bowel suspect for at least partial small bowel obstruction. This is likely in the proximal to mid ileum. There is no free air. IMPRESSION: Dilated loops of proximal small bowel suspect for complete or high-grade partial small bowel obstruction likely within the origin in the mid to proximal ileum. Dictated by: Dictated on workstation # [id number]
[2017-02-19] MEDS ORDERED: CHLORASEPTIC SPRAY 177 ML LIQUID MC PRN (10:45)
--- NOTE | 2017-02-19 12:32 | Progress Note (SOAP) ---
Subjective Subjective Date Seen by Provider: Feb 19, 2017 Time Seen by Provider: 12:00 61 yo F admitted for partial small bowel obstruction- pt has nausea and bilous vomitng last night and abdominal distension- NG tube placed with bilious return. Pt feeling a little worse. She is walking the halls to try and get her bowels moving. Review of Systems General: No Chills, No Night Sweats HEENT: No Head Aches Pulmonary: No Dyspnea, No Cough Cardiovascular: No: Chest Pain, Palpitations, Orthopnea Gastrointestinal: Nausea, Vomiting, Abdominal Pain Genitourinary: No Dysuria, No Frequency Musculoskeletal: No: neck pain, shoulder pain Neurological: No: Numbness Objective Exam Vital Signs Vital Signs Date Time Temp Pulse Resp B/P (MAP) Pulse Ox O2 Delivery O2 Flow Rate FiO2 02/19/17 08:11 97.3 79 20 125/77 96 Room Air 02/19/17 04:00 97.9 76 18 131/83 96 Room Air 02/19/17 00:00 97.2 80 20 116/74 95 Room Air 02/18/17 20:17 99.3 80 20 140/87 96 Room Air 02/18/17 16:00 98.1 71 22 131/70 97 Room Air General Appearance: WD/WN, Mild Distress Eyes: Bilateral Eye PERRL, Bilateral Eye EOMI HEENT: Normal ENT Inspection (NG tube in place) Neck: Supple Respiratory: Lungs Clear Cardiovascular: Regular Rate, Rhythm Gastrointestinal: Soft, Abnormal Bowel Sounds (hypoactive), Distended (mild), Tenderness ( RLQ) Rectal: Deferred Back: No CVA Tenderness Extremity: Non Tender, No Calf Tenderness, No Pedal Edema Neurologic/Psychiatric: Alert, Oriented x3 Skin: Normal Color, Warm/Dry Lymphatic: No Adenopathy Results Lab Microbiology 02/17/17 Urine Culture - Final, Complete Escherichia Coli Streptococcus Viridans Assessment/Plan Assessment/Plan Assessment/Plan 61 yo F partial small bowel obstruction due to enteritis, adhesions- IVF, pain control - Dr. Rowland consulted- SBFT performed 02/18/17- KUB this AM showed moderate retained contrast material. urinary traction infection without hematuria- rocephin, urine culture Ecoli, strep- continue IVF - continue IV rocephin as her bowels are working efficient enough. hypertension- blood pressure stable- lisinopril held. Dispo: surgery managing pSBO- Pt has an NG tube in as she is not passing flatus nor has she had a BM. Problems: Clinical Quality Measures DVT/VTE Risk/Contraindication: Risk Factor Score Per Nursin RFS Level Per Nursing on Admit: 3=High MANNY BRASHER MD Feb 19, 2017 12:32
[2017-02-19 12:47] VITALS: BP 136/80
[2017-02-19 16:00] VITALS: BP 135/79
[2017-02-20 00:03] VITALS: BP 116/72
[2017-02-20 05:42] LABS: MEAN PLATELET VOLUME 11.2 FL (7.4-10.4); RED BLOOD COUNT 3.95 10^6/uL (4.35-5.85); RED CELL DISTRIBUTION WIDTH 12.3 % (10.0-14.5); WHITE BLOOD COUNT 7.1 10^3/uL (4.3-11.0)
[2017-02-20] MEDS: cefTRIAXone 1 GM/NS 50 ML IVPB IV SCH ×2 (05:51)
[2017-02-20 06:53] LABS: ANION GAP 7 MMOL/L (5-14); BLOOD UREA NITROGEN 4 MG/DL (7-18); BUN/CREATININE RATIO 5; CALCIUM 8.5 MG/DL (8.5-10.1); CARBON DIOXIDE 26 MMOL/L (21-32); CHLORIDE 108 MMOL/L (98-107); CREATININE SERUM 0.76 MG/DL (0.60-1.30); GFR ESTIMATED > 60; GLUCOSE 94 MG/DL (70-105); PHOSPHORUS 2.8 MG/DL (2.3-4.7); POTASSIUM 3.3 MMOL/L (3.6-5.0); SODIUM 141 MMOL/L (135-145)
[2017-02-20 07:39] VITALS: BP 131/82
[2017-02-20] MEDS: D5 1/2 NS 1000 ML IV SOLUTION 1,000 ML IV SCH (08:21)
[2017-02-20] MEDS: FAMOTIDINE 20MG/2ML IV (PEPCID) IVP SCH (08:21)
[2017-02-20] MEDS ORDERED: DOCU100C59 PO (12:21)
--- NOTE | 2017-02-20 12:22 | Discharge Inst-Simple/Standard ---
Discharge Inst-Standard Patient Instructions/Follow Up Plan of Care/Instructions/FU: Fwup in 2weeks Activity as Tolerated: Yes Discharge Diet: Low Residue Planned Outpatient Orders/Ref. Pneu Vac Indicated: Yes TETO MUSA DO Feb 20, 2017 12:22 pm
[2017-02-20 13:46] VITALS: BP 131/82
== END 2017-02-20 13:50 | disposition home or self-care (01) | DRG 389 ==
LOC: EDUNIT# 03:02 → ER 03:04 → UNDOADMOB 06:16 → 4TH 06:16 → INTOOBSV 13:18 → OBSVTOIN 13:18 → UNDODISIN 02-20 13:50
PROVIDERS: ADMIT Family Medicine; ATTEND Family Medicine
DX: K56.5 Intestinal adhesions [bands] with obstruction (postinfection) (principal); K52.89 Other specified noninfective gastroenteritis and colitis; N39.0 Urinary tract infection, site not specified; I10 Essential (primary) hypertension
CPT/HCPCS: 36415; 74000; 74177; 74250; 80048; 80053; 81000; 83690; 83735; 84100; 85007; 85025; 85027; 87077; 87088; 87186; 96365; 96375

== ENCOUNTER → 2019-05-28 | Outpatient (CLI) | payer MEDICARE, OTHER ==
[~2019-05-28] MED LIST changes: +CYAN-41 PO; +DOCU100C59 PO; +MULT-834 PO; +OMG1KC PO
--- NOTE | 2019-05-28 11:06 | Diagnostic Imaging Report ---
INDICATION: Screening for osteoporosis. COMPARISON: None FINDINGS: The bone mineral density of the hips and spine was measured. There are no prior studies available for comparison. The T-score for the spine is -1.0. This is at the lowest end of normal. The total T-score for the left hip is 0.7 and for the right hip is 0.3. The T- score for the left femoral neck is -0.6 and for the right femoral neck -0.7. These values are within normal limits. AP Spine L1-L4: [BMD (g/cm2): 1.077] [T-Score: -1.0] [Z-Score: -0.3] [BMD Previous: N/A] [BMD % Change: N/A] LT Hip Neck: [BMD (g/cm2): 0.949] [T-Score: -0.6] [Z-Score: 0.3] LT Hip Total: [BMD (g/cm2):1.092] [T-Score:0.7] [Z-Score: 1.2] [BMD Previous: N/A] [BMD % Change: N/A] RT Hip Neck: [BMD (g/cm2):.946] [T-Score:-0.7] [Z-Score:0.2] RT Hip Total: [BMD (g/cm2):1.040] [T-score:0.3] [Z-Score:0.8] [BMD Previous:N/A] [BMD % Change:N/A] *Indicates significant change from prior examination based on 95% confidence level. World Health Organization criteria for BMD interpretation classify patients as Normal (T-score at or above -1.0), Osteopenic (T-score between -1.0 and -2.5) or Osteoporotic (T-score at or below -2.5). LIMITATIONS AND MODIFICATION: None. FRACTURE RISK (FRAX SCORE): The ten year probability of (%): Major Osteoporotic Fracture: [N/A] Hip Fracture: [N/A] IMPRESSION: 1. The bone mineral density of the spine is within normal limits. The bone mineral density of the spine however is at the lowest end of normal 2. See below National Osteoporosis Foundation guidelines on when to potentially initiate pharmacologic therapy. Based on the National Osteoporosis Foundation Guidelines, pharmacologic treatment should be initiated in any of the following, unless clinical conditions suggest otherwise: * Any patient with prior fragility fracture of the hip or vertebrae. A spine fracture indicates 5X risk for subsequent spine fracture and 2X risk for subsequent hip fracture. * Osteoporosis (T-score <-2.5). * Postmenopausal women and men age 50 and older with low bone mass/osteopenia (T-score between -1.0 and -2.5) by DXA and 10-year major osteoporotic fracture greater than 20% or a 10-year probability of hip fracture greater than 3%. These fracture risks are supplied above in the FRAX score, if applicable. * Clinician judgement and/or patient preferences may indicate treatment for people with 10-year fracture probabilities above or below these levels. Dictated by: Dictated on workstation # [id number]
--- NOTE | 2019-05-29 08:13 | Diagnostic Imaging Report ---
Digital mammogram. Bilateral screening. This study was compared with prior exams of 12/22/2016, 12/22/2015 and 12/19/2014. At this time there are no current complaints. The current study was also evaluated with a Computer Aided Detection (CAD) system. FINDINGS: The fibroglandular tissue in both breasts is heterogeneously dense. This does limit the sensitivity of this exam. Overall, there does not appear to have been any significant change when compared to the prior study. No primary or secondary sign of malignancy is noted. IMPRESSION: There is no radiographic evidence for malignancy. ACR BI-RADS Category 1: Negative. Result letter will be mailed to the patient. Note: At least 10% of breast cancer is not imaged by mammography. Dictated by: Dictated on workstation # [id number]
== END ==
LOC: RAD 10:03
PROVIDERS: ATTEND Family Medicine
DX: Z12.31 Encounter for screening mammogram for malignant neoplasm of breast (principal); Z13.820 Encounter for screening for osteoporosis; Z78.0 Asymptomatic menopausal state
CPT/HCPCS: 77067; 77080

== ENCOUNTER → 2020-06-01 | Outpatient (CLI) | payer MEDICARE, OTHER ==
--- NOTE | 2020-06-01 11:43 | Diagnostic Imaging Report ---
INDICATION: Routine screening. COMPARISON: 05/28/2019 and 12/22/2016. TECHNIQUE: 2D and 3D bilateral screening mammography was performed with CAD. FINDINGS: Both breasts are heterogeneously dense, limiting the sensitivity of mammography. Circumscribed nodules in both breasts appear stable. No spiculated mass or malignant appearing microcalcifications are seen. The axillae are unremarkable. IMPRESSION: No mammographic features suspicious for malignancy are identified. ACR BI-RADS Category 2: Benign findings. Result letter will be mailed to the patient. Note: At least 10% of breast cancer is not imaged by mammography. Dictated by: Dictated on workstation # [id number]
== END ==
LOC: RAD 09:27
PROVIDERS: ATTEND Family Medicine
DX: Z12.31 Encounter for screening mammogram for malignant neoplasm of breast (principal)
CPT/HCPCS: 77063; 77067

== ENCOUNTER → 2021-06-02 | Outpatient (CLI) | payer MEDICARE, OTHER ==
[~2021-06-02] MED LIST changes: -LISI10TA2 PO; +LISI10TA25 PO
--- NOTE | 2021-06-02 12:40 | Diagnostic Imaging Report ---
Digital mammogram. Indication: Bilateral screening This study was compared to the prior exam of 06/01/2020, 05/28/2019 and 12/22/2016. At this time there are no current complaints. The current study was also evaluated with a Computer Aided Detection (CAD) system. FINDINGS: The fibroglandular tissue in both breasts is heterogeneously dense. This does limit the sensitivity of this exam. Overall, there does not appear to have been any significant change when compared to the prior study. No primary or secondary sign of malignancy is noted. IMPRESSION: There is no radiographic evidence for malignancy. ACR BI-RADS Category 1: Negative. Result letter will be mailed to the patient. Note: At least 10% of breast cancer is not imaged by mammography. Dictated by: Dictated on workstation # [id number]
== END ==
LOC: RAD 08:00
PROVIDERS: ATTEND Family Medicine
DX: Z12.31 Encounter for screening mammogram for malignant neoplasm of breast (principal)
CPT/HCPCS: 77063; 77067

== ENCOUNTER → 2021-11-24 | Outpatient (CLI) | payer MEDICARE, OTHER | LOC: CARD 13:47 | PROVIDERS: ATTEND Family Medicine | DX: I08.3 Combined rheumatic disorders of mitral, aortic and tricuspid valves (principal) | CPT/HCPCS: 93306 ==

== ENCOUNTER → 2022-06-07 | Outpatient (CLI) | payer MEDICARE, OTHER ==
--- NOTE | 2022-06-07 14:45 | Diagnostic Imaging Report ---
INDICATION: Routine screening. COMPARISON is made with prior mammograms 06/02/2021 and 06/01/2020. 2-D and 3-D bilateral screening mammography was performed with CAD. Both breasts are heterogeneously dense, limiting the sensitivity of mammography. There are circumscribed lesions in both breasts which appear benign. No spiculated mass or malignant-appearing microcalcifications are seen. Axillae are unremarkable. IMPRESSION: BI-RADS Category 2 No mammographic features suspicious for malignancy are identified. ACR BI-RADS Category 2: Benign findings. Result letter will be mailed to the patient. Note: At least 10% of breast cancer is not imaged by mammography. Dictated by: Dictated on workstation # [id number]
== END ==
LOC: RAD 08:30
PROVIDERS: ATTEND Family Medicine
DX: Z12.31 Encounter for screening mammogram for malignant neoplasm of breast (principal)
CPT/HCPCS: 77063; 77067

== ENCOUNTER 2022-11-09 05:52 | Outpatient (CLI) | payer MEDICARE, OTHER ==
[~2022-11-09] VITALS: Ht 166.4 cm; Wt 103.6 kg
[2022-11-10] MEDS ORDERED: CYAN10007 PO (17:17)
[2022-11-10] MEDS ORDERED: ALLO100T PO (17:17)
[2022-11-10] MEDS ORDERED: POTA-51 PO (17:17)
[2022-11-10] MEDS ORDERED: FURO40TA4 PO (17:17)
[2022-11-10] MEDS ORDERED: MULT-593 PO (17:17)
[2022-11-10] MEDS ORDERED: NEBI20TA6 PO (17:17)
[2022-11-10] MEDS ORDERED: NF-VITD400 PO (17:17)
== END 2022-11-10 17:23 | disposition home or self-care (01) ==
LOC: PREOP 05:52
PROVIDERS: ATTEND Surgery
DX: Z01.818 Encounter for other preprocedural examination (principal)

== ENCOUNTER 2022-11-22 09:15 | Day surgery (SDC) | payer MEDICARE, OTHER ==
[~2022-11-22] VITALS: Ht 166.4 cm; Wt 103.6 kg
[~2022-11-22 09:15] MED LIST changes: +ALLO100T PO; +CYAN10007 PO; +FURO40TA4 PO; +MULT-593 PO; +NEBI20TA6 PO; +NF-VITD400 PO; +POTA-51 PO
--- NOTE | 2022-11-22 10:44 | Progress Note-Pre Operative ---
Pre-Operative Progress Note Date H&P Reviewed: November 22, 2022 Time H&P Reviewed: 10:43 History & Physical: H&P Reviewed, Patient Examed, No changes noted Pre-Operative Diagnosis: hx polyps, family hx colon cancer BRANDON COLON DO November 22, 2022 10:44
[2022-11-22] MEDS ORDERED: LACTATED RINGERS 1,000 ML IV STA (10:48)
[2022-11-22 10:51] VITALS: BP 131/83
[2022-11-22] MEDS ORDERED: MIDAZOLAM 2 MG/2 ML (VERSED) VIAL ONE (12:01)
[2022-11-22] MEDS ORDERED: PROPOFOL INJECTION 50 ML IV ONE (12:01)
[2022-11-22 12:30] VITALS: BP 122/69
--- NOTE | 2022-11-22 12:32 | Progress Note-Post Operative ---
Post-Operative Progess Note Surgeon (s)/Reconciliation Accountant (s) Surgeon BRANDON COLON DO Reconciliation Accountant: na Pre-Operative Diagnosis hx polyps, family hx colon cancer Post-Operative Diagnosis Rectal polyp Procedure & Operative Findings Date of Procedure 11/22/22 Procedure Performed/Findings colonoscopy with cold biopsy polypectomy x 1 Anesthesia Type per [employer] G[employer] OPERATOR Estimated Blood Loss Estimated blood loss (mL): none Specimens/Packing Specimens Removed Rectum BRANDON COLON DO November 22, 2022 12:32
--- NOTE | 2022-11-22 12:33 | Discharge Inst-Simple/Standard ---
Discharge Inst-Standard Patient Instructions/Follow Up Plan of Care/Instructions/FU: follow up with augustin in two weeks Activity as Tolerated: Yes Discharge Diet: Regular Diet BRANDON COLON DO November 22, 2022 12:33
[2022-11-22 12:35] VITALS: BP 120/68
[2022-11-22 12:40] VITALS: BP 122/68
[2022-11-22 13:35] VITALS: BP 122/68
--- NOTE | 2022-11-22 14:51 | Anesthesia-General Post-Op ---
MAC Patient Condition Mental Status/LOC: Same as Preop Cardiovascular: Satisfactory Nausea/Vomiting: Absent Respiratory: Satisfactory Pain: Controlled Complications: Absent Post Op Complications Complications None Follow Up Care/Instructions Patient Instructions None needed. Anesthesiology Discharge Order Discharge Order Patient is doing well, no complaints, stable vital signs, no apparent adverse anesthesia problems. No complications reported per nursing. ROC DÍAZ CRNA November 22, 2022 14:51
--- NOTE | 2022-11-22 20:15 | OPERATIVE REPORT ---
DATE OF SERVICE: 11/22/2022 PREOPERATIVE DIAGNOSES: Family history of colon cancer, history of polyps. POSTOPERATIVE DIAGNOSIS: Rectal polyp. PROCEDURE: Colonoscopy with cold biopsy polypectomy. SURGEON: Brandon Green DO ANESTHESIA: Per [employer]AP LINING BINDER. ESTIMATED BLOOD LOSS: None. COMPLICATIONS: None. INDICATIONS: The patient is a 67-year-old female, needing colonoscopy. She understands risks and benefits of procedure and wished to proceed. Consent was signed in chart. DESCRIPTION OF PROCEDURE: The patient was taken to endoscopy suite, placed in left lateral recumbent position. Timeout was performed. Digital rectal exam was performed. No palpable polyps, masses or ulcerations. Scope was inserted into the rectum and advanced all the way to the cecum with minimal difficulty. Prep was adequate. Scope was slowly retracted back. No polyps, masses or ulcerations in the cecum, ascending, transverse, descending and sigmoid colon. Once in the rectum, a small polyp was present, which cold biopsy polypectomy was performed. Scope was retroflexed noting no other pathology. Scope was returned to its normal position, slowly withdrawn until completely removed. The patient tolerated the procedure well without any complications, taken to recovery room in stable condition. RECOMMENDATIONS: The patient will need repeat colonoscopy in 5 years. Any issues before that, be seen at that time. She will follow up in the office in 2 weeks to discuss pathology results. Job ID: [id number] DocumentID: [id number] Dictated Date: 11/22/2022 12:32:23 Master Planner Date: 11/22/2022 20:13:00 Dictated By: BRANDON GREEN DO
== END 2022-11-22 13:35 | disposition home or self-care (01) ==
LOC: ENDO 09:15
PROVIDERS: ATTEND Surgery
DX: Z12.11 Encounter for screening for malignant neoplasm of colon (principal); K62.1 Rectal polyp; Z80.0 Family history of malignant neoplasm of digestive organs; E66.9 Obesity, unspecified; Z68.37 Body mass index [BMI] 37.0-37.9, adult